=== PATIENT | female | born 1965 | race Caucasian/White ===

== ENCOUNTER 2016-02-26 16:42 | Emergency (ER) | payer OTHER ==
[~2016-02-26] VITALS: Ht 157.5 cm; Wt 68.0 kg
[2016-02-26] MEDS ORDERED: CYCLOBENZAPRINE10 M1 PO (18:54)
[2016-02-26] MEDS ORDERED: PERCOCET 5-3251 EACH PO (18:54)
--- NOTE | 2016-02-26 18:55 | ED NECK/BACK PAIN COMPLAINT ---
History of Present Illness General Chief Complaint: Low Back Pain/Injury Stated Complaint: BACK PAIN Source: patient, family Exam Limitations: no limitations Vital Signs & Intake/Output Vital Signs & Intake/Output Vital Signs Date Time Temp Pulse Resp B/P Pulse O2 O2 Flow FiO2 Ox Delivery Rate 02/25 1916 98.2 98 16 168/84 97 Room Air 02/25 1646 98.3 86 16 173/68 98 Allergies Coded Allergies: NSAIDS (Non-Steroidal Anti-Inflamma (Mild, ANAPHYLAXIS 02/26/16) Reconcile Medications Cyclobenzaprine HCl 10 MG TABLET 1 TAB PO Q8P spasms Oxycodone HCl/Acetaminophen (Percocet 5-325 MG Tablet) 5 MG-325 MG TABLET 1-2 TAB PO Q6P PRN pain Triage Note: PT STATES THAT SHE HAS CHRONIC BACK PROBLEMS AND THAT SHE HAS BEEN HAVING LOW BACK PAIN SINCE YESTERDAY AND TYLENOL IS NOT HELPING Triage Nurses Notes Reviewed? yes Onset: Abrupt Duration: day(s): (1), constant, continues in ED Timing: recent history Location: lumbar spine Radiation: none Method of Injury: unknown HPI: 50-year-old female with a history of low back fusion at L3 L4 L5 and a history of low back pain comes into the emergency room with acute exacerbation. Patient lives in [place] and is here with her on work. Patient complains of tenderness in the lower back. Worse with range of motion. Denies any urinary bowel dysfunction. Denies any radiation of pain. Patient has had this happened to her many times in the past and the pain will usually last a few days and then get better. (HAMZAH GARCIA) Past History Travel History Traveled to [place] past 21 day No Medical History Any Pertinent Medical History? see below for history Neurological: NONE EENT: NONE Cardiovascular: NONE Respiratory: NONE Gastrointestinal: NONE Hepatic: NONE Renal: NONE Musculoskeletal: chronic back pain Psychiatric: NONE Endocrine: NONE Blood Disorders: NONE Cancer(s): NONE DIRECTOR COUNCIL ON AGING/Reproductive: NONE Surgical History Surgical History: non-contributory Psychosocial History What is your primary language Greek Tobacco Use: Current Daily Use Daily Tobacco Use Amount/Type: => 5 Cigarettes daily ETOH Use: denies use Illicit Drug Use: denies illicit drug use Family History Hx Contributory? No (HAMZAH GARCIA) Review of Systems Review of Systems Constitutional: Reports: no symptoms. Eyes: Reports: no symptoms. Ears, Nose, Throat, Mouth: Reports: no symptoms. Respiratory: Reports: no symptoms. Cardiovascular: Reports: no symptoms. Gastrointestinal/Abdominal: Reports: no symptoms. Musculoskeletal: Reports: see HPI. Skin: Reports: no symptoms. Neurological/Psychological: Reports: no symptoms. All Other Systems: Reviewed and Negative (HAMZAH GARCIA) Physical Exam Physical Exam General Appearance: well developed/nourished, mild distress Head: atraumatic Eyes: Bilateral: normal appearance. Ears, Nose, Throat, Mouth: hearing grossly normal, moist mucous membrane Neck: normal inspection, full range of motion Respiratory: normal breath sounds, no respiratory distress Cardiovascular: regular rate/rhythm Back: normal inspection, paraspinal tenderness Extremities: normal range of motion Motor: Deficit L4 Right: No Deficit L4 Left: No Deficit L5 Right: No Deficit L5 Left: No Deficit S1 Right: No Deficit S1 Right: No Neurologic/Psych: awake, alert, oriented x 3, normal mood/affect Skin: intact, normal color, warm/dry (HAMZAH GARCIA) Progress Differential Diagnosis: cauda equina syn, herniated disc, myofascial strain, sciatica, spinal cord inj, thoracic outlet syn, T/L spine injury, ureterolithiasis Plan of Care: Current Medications Sig/Juan Jose Start time Last Medication Dose Stop Time Status Admin Hydromorphone HCl 2 MG ONCE ONE 02/25 1899 AC (Dilaudid) 02/25 1900 Comments: 02/26/2016 7:10:40 PM Patient clinically looks well. Patient is nontoxic-appearing. Patient is in no apparent distress. Patient resting comfortably in room. Pain is reproducible and paraspinal region. Likely more muscular in nature. Patient reports that she has gotten Dilaudid in the past as a shot which is health. Patient referred to orthopedic if not better in 3-5 days. Return if any other concerns. (HAMZAH GARCIA) Departure Departure Disposition: HOME OR SELF CARE Condition: Stable Clinical Impression Primary Impression: Acute exacerbation of chronic low back pain Referrals: CRICKET ALVAREZ,SHAAN Wilson PATIENT HAS NO PRIMARY CARE DR (PCP/Family) Referred to [facility] as new patient No Additional Instructions: Take Percocet as prescribed. Take Flexeril as prescribed. Follow-up with orthopedic doctor if not better in 5 days. Return to the emergency room immediately if any other concerns worsening symptoms. Return if any weakness in the lower legs or urinary bowel dysfunction. Please go over all results of today's visit with your primary care doctor. Contact your primary care doctor to let them know you were here in the emergency room. There may be nonspecific findings which may not be related to your visit today here in the emergency room but may require further evaluation and chronic monitoring by your primary care doctor. If you had a laceration today the chance of foreign body always remains. You should follow-up with your primary care doctor for recheck in 3-5 days for a wound check. If you had an x-ray done there is a chance that a fracture could have been missed on initial read and you should follow-up with your primary care doctor for repeat x-rays if symptoms persist. If your blood pressure was elevated here in the emergency room please have rechecked by her primary care doctor within the next 48 hours by your primary care doctor. If you were prescribed a narcotic here in the emergency room or any type of controlled substances you're not allowed to drive while taking this medication or operate any type of heavy machinery. Narcotics can make you feel lightheaded dizziness nausea and can cause constipation. You may need to shredder picker a stool softener. Thank you for choosing [facility] emergency room. Please return to the emergency room immediately if you have any other concerns worsening of symptoms. Departure Forms: Customer Survey General Discharge Information Prescriptions: Current Visit Scripts Oxycodone HCl/Acetaminophen (Percocet 5-325 MG Tablet) 1-2 TAB PO Q6P PRN pain #15 TAB Cyclobenzaprine HCl 1 TAB PO Q8P #20 TAB (HAMZAH GARCIA) PA/RETIREMENT VILLAGE MANAGER Co-Sign Statement Statement: ED Attending supervision documentation- [] I saw and evaluated the patient. I have also reviewed all the pertinent lab results and diagnostic results. I agree with the findings and the plan of care as documented in the PA's/RETIREMENT VILLAGE MANAGER's documentation. [x] I have reviewed the ED Record and agree with the PA's/RETIREMENT VILLAGE MANAGER's documentation. [] Additions or exceptions (if any) to the PAs/RETIREMENT VILLAGE MANAGER's note and plan are summarized below: [] (JAMIE SORIANO DO
[2016-02-26 19:16] VITALS: BP 168/84
== END 2016-02-26 19:21 ==
LOC: ERH 16:42
DX: M54.5 Low back pain (principal)
CPT/HCPCS: 96372